=== PATIENT | female | born 1950 | race Caucasian/White ===

== ENCOUNTER 2021-11-21 20:07 | Day surgery (SDCO) | payer MEDICARE, OTHER ==
[~2021-11-21] VITALS: Ht 160 cm; Wt 80.4 kg
[2021-11-21 22:25] LABS: BASOPHIL 0.2 % (0-2); EOSINOPHIL 0.4 % (0-7); HCT 42.1 % (37.0-47.0); HGB 13.5 g/dl (12.5-16.0); LYMPHOCYTE 12.5 % (15-48); MCH 27.7 pg (25.0-31.0); MCHC 32.1 g/dL (32.0-36.0); MCV 86.4 fL (78.0-100.0); MONOCYTE 5.5 % (0-12); MPV 11.6 fL (6.0-9.5); NEUTROPHIL 80.8 % (41-80); NRBC 0; PLT 213 K/uL (150-400); RBC 4.87 M/uL (4.20-5.40); RDW 12.5 % (11.5-14.0); WBC 23.3 K/uL (4.0-10.5)
[2021-11-21 22:46] LABS: LACTIC ACID 1.4 mmol/L (0.4-1.9)
[2021-11-21 22:57] LABS: ALBUMIN 4.1 g/dL (3.4-5.0); BILIRUBIN - TOTAL 0.9 mg/dL (0.2-1.0); BUN/CREAT RATIO (CALC) 21.8 RATIO; CREATININE 1.01 mg/dL (0.51-0.95); GLOBULIN (CALCULATION) 3.6 g/dL; POTASSIUM 3.9 mmol/L (3.5-5.1); TOTAL PROTEIN 7.7 g/dL (6.4-8.2)
[2021-11-21 23:39] LABS: CORONAVIRUS 2019 SARS-COV-2 NEGATIVE (NEGATIVE); INFLUENZA A NAA NEGATIVE (NEGATIVE)
[2021-11-22] MEDS ORDERED: MOBIC7.5 MG PO (10:42)
[2021-11-22] MEDS ORDERED: SINGULAIR10 MG PO (10:42)
[2021-11-22] MEDS ORDERED: NEURONTIN300 MG PO (10:44)
[2021-11-22] MEDS ORDERED: CRESTOR10 MG PO (10:45)
[2021-11-22] MEDS ORDERED: TIZANIDINE HCL4 MG PO (10:46)
[2021-11-22] MEDS ORDERED: REQUIP0.25 MG PO (10:47)
[2021-11-22] MEDS ORDERED: COZAAR50 MG PO (10:47)
[2021-11-23 00:15] LABS: BILIRUBIN NEGATIVE (NEGATIVE); BLOOD NEGATIVE Ery/uL (NEGATIVE); CLARITY CLEAR (CLEAR); COLOR YELLOW (YELLOW); GLUCOSE (U) NORMAL (NORMAL); LEUKOCYTES 1+ Leu/uL (NEGATIVE); NITRITE NEGATIVE (NEGATIVE); PROTEIN NEGATIVE (NEGATIVE); UROBILINOGEN 0.2 mg/dL (0.2-1.0)
[2021-11-23 00:27] LABS: BACTERIA TRACE
[2021-11-23 06:41] LABS: BASOPHIL 0.2 % (0-2); EOSINOPHIL 0.1 % (0-7); HCT 35.8 % (37.0-47.0); HGB 11.2 g/dl (12.5-16.0); LYMPHOCYTE 8.5 % (15-48); MCH 27.6 pg (25.0-31.0); MCHC 31.3 g/dL (32.0-36.0); MCV 88.2 fL (78.0-100.0); MONOCYTE 0.9 % (0-12); MPV 11.7 fL (6.0-9.5); NEUTROPHIL 89.2 % (41-80); NRBC 0; PLT 172 K/uL (150-400); RBC 4.06 M/uL (4.20-5.40); RDW 12.6 % (11.5-14.0); WBC 12.5 K/uL (4.0-10.5)
[2021-11-23 07:09] LABS: BUN/CREAT RATIO (CALC) 19.7 RATIO; CREATININE 0.71 mg/dL (0.51-0.95); MAGNESIUM 2.1 mg/dL (1.8-2.4); POTASSIUM 4.7 mmol/L (3.5-5.1)
--- NOTE | 2021-11-24 10:19 | NUR ---
11/24/21 Ms. Jackson lives at home with her spouse. She is indeoendent in the home and community. She does not use any DME. - Pt does not qualify for home 02 at this point. )2 sats were 93% with walk test.
[2021-11-26] MEDS ORDERED: PREDNISONE 20MG20 MG PO (09:42)
[2021-11-26] MEDS ORDERED: METFORMIN HCL500 MG PO (09:42)
[2021-11-26] MEDS ORDERED: CEFDINIR300 MG PO (09:42)
[2021-11-26] MEDS ORDERED: VENTOLIN HFA IN18 GM INH (09:45)
== END 2021-11-26 14:30 | disposition home or self-care (01) ==
LOC: FER 20:07 → FMS 11-22 03:33
PROVIDERS: Emergency Medicine; Hospitalist; ADMIT Internal Medicine
DX: J18.9 Pneumonia, unspecified organism (principal); J45.901 Unspecified asthma with (acute) exacerbation; E11.65 Type 2 diabetes mellitus with hyperglycemia; T38.0X5A Adverse effect of glucocorticoids and synthetic analogues, initial encounter; I10 Essential (primary) hypertension; G25.81 Restless legs syndrome; G62.9 Polyneuropathy, unspecified; E78.00 Pure hypercholesterolemia, unspecified; Z77.22 Contact with and (suspected) exposure to environmental tobacco smoke (acute) (chronic); Z79.1 Long term (current) use of non-steroidal anti-inflammatories (NSAID); Z79.899 Other long term (current) drug therapy; Z20.822 Contact with and (suspected) exposure to COVID-19
CPT/HCPCS: 36415; 71045; 71250; 80048; 80053; 80202; 81001; 82150; 83036; 83605; 83735; 84145; 84484; 85025; 87040; 93005; 94640; 94667; 94668; G0378; J0692; J1650; J2270; J2405; J2543; J2920; J3370; J7030; J7050; U0002